=== PATIENT | male | born 2000 | race Caucasian/White ===

== ENCOUNTER 2022-07-01 13:41 | Emergency (ER) | payer SELFPAY ==
[~2022-07-01] VITALS: Ht 172.7 cm; Wt 76.9 kg
[2022-07-01 13:54] VITALS: TEMP 96.9
[2022-07-01 14:24] LABS: BASO % 0.6 % (0.0-2.0); EOS # 0.1 K/mm3 (0.0-0.7); EOS % 2.6 % (0.0-4.0); GRAN # 2.8 K/mm3 (1.4-6.5); GRAN % 52.6 % (42.2-75.2); HEMATOCRIT 39.9 % (36.0-47.0); LYMPH # 1.8 K/mm3 (1.2-3.4); LYMPH % 33.3 % (20.0-51.0); MEAN CELL VOLUME 88 fl (80.0-95.0); MEAN CORPUSCULAR HEMOGLOBIN 31 pg (26-32); MEAN CORPUSCULAR HGB CONC 35 g/dl (33.0-37.0); MEAN PLATELET VOLUME 8.6 fl (7.4-10.4); MONO # 0.6 K/mm3 (0.1-0.6); MONO % 10.3 % (1.7-9.3); PLATELET COUNT 183 K/mm3 (130-400); RED BLOOD COUNT 4.56 M/mm3 (4.20-5.60); REDCELL DISTRIBUTION WIDTH-CV 12.7 % (11.5-14.5)
[2022-07-01 14:44] LABS: BILIRUBIN,TOTAL 0.7 mg/dL (0.2-1.2); CALCIUM 8.5 mg/dL (8.4-10.2); CREATININE, serum 0.86 mg/dL (0.72-1.25); POTASSIUM 3.6 mmol/L (3.5-4.5); TOTAL PROTEIN 6.7 gm/dL (6.2-8.1)
[2022-07-01 16:01] VITALS: BP 124/79; PULSE 78
== END 2022-07-01 16:03 | disposition home or self-care (01) ==
LOC: COL.ER 13:41 → EDBD 13:43 → COL.ER 13:43
PROVIDERS: Nurse Practitioner
DX: F10.129 Alcohol abuse with intoxication, unspecified (principal); Y90.6 Blood alcohol level of 120-199 mg/100 ml